=== PATIENT | female | born 1965 | race African-American/Black ===

== ENCOUNTER 2022-09-04 15:56 | Emergency (ER) | payer MEDICAID ==
[~2022-09-04] VITALS: Ht 162.6 cm; Wt 84.0 kg
[2022-09-04 16:05] VITALS: BP 160/60
[2022-09-04] MEDS ORDERED: NAP5EC PO (17:59)
[2022-09-04] MEDS ORDERED: CLIN-116 PO (17:59)
== END 2022-09-04 18:14 | disposition home or self-care (01) ==
LOC: ER 15:56
DX: K08.89 Other specified disorders of teeth and supporting structures (principal); H92.02 Otalgia, left ear; I10 Essential (primary) hypertension; J45.909 Unspecified asthma, uncomplicated; Z88.0 Allergy status to penicillin
CPT/HCPCS: 99283